=== PATIENT | male | born 1990 | race Asian ===

== ENCOUNTER 2021-07-11 21:05 | Emergency (ER) | payer OTHER ==
[~2021-07-11] VITALS: Ht 180.3 cm; Wt 87.5 kg
[2021-07-11 21:50] LABS: POTASSIUM 3.7 mmol/L (3.6-5.2)
[2021-07-11 22:55] LABS: PLATELET COUNT 234 K/uL (142-355)
[2021-07-12 01:05] VITALS: BP 138/92; TEMP 97.6
== END 2021-07-12 01:05 | disposition home or self-care (01) ==
LOC: ED 21:05
PROVIDERS: Emergency Medicine
DX: R10.31 Right lower quadrant pain (principal)
CPT/HCPCS: 36415; 80053; 81000; 85027; 96360; 96374; 96375; 99284; J1885; J2270; J2405

== ENCOUNTER 2021-11-01 11:40 | Emergency (ER) | payer OTHER ==
[~2021-11-01] VITALS: Ht 180.3 cm; Wt 87.5 kg
[2021-11-01 11:48] VITALS: TEMP 97.1
[2021-11-01 13:00] VITALS: BP 1368/82
== END 2021-11-01 13:12 | disposition home or self-care (01) ==
LOC: ED 11:40
DX: S13.8XXA Sprain of joints and ligaments of other parts of neck, initial encounter (principal); S20.212A Contusion of left front wall of thorax, initial encounter; S40.012A Contusion of left shoulder, initial encounter; V59.40XA Driver of pick-up truck or van injured in collision with unspecified motor vehicles in traffic accident, initial encounter; Y92.89 Other specified places as the place of occurrence of the external cause
CPT/HCPCS: 96372; 99283; J1885